=== PATIENT | male | born 1980 | race Two or more races ===

== ENCOUNTER 2023-06-04 09:16 | Emergency (ER) | payer SELFPAY ==
[2023-06-04 10:14] LABS: Urine Bacteria FEW /hpf (None Seen); Urine Blood Negative /uL (Negative); Urine Clarity Clear (Clear); Urine Color Yellow (Yellow); Urine Protein, UAD 1+ (Negative); Urine Specific Gravity 1.031 (1.001-1.035); Urine WBC 1 /hpf (0 - 3)
[2023-06-04 10:15] LABS: Basophils # (auto) 0.1 10 ^3/uL (0-0.2); Basophils % (auto) 0.6 % (0.0-2.0); Eosinophils # (auto) 0.1 10 ^3/uL (0-0.8); Eosinophils % (auto) 1.1 % (0.0-7.0); Hematocrit 44.8 % (41.0-53.0); Hemoglobin 15.3 g/dL (13.5-17.5); Lymphocytes # (auto) 2.4 10 ^3/uL (0.4-5.4); Mean Corpuscular Hemoglobin 30.8 pg (28.0-32.0); Mean Corpuscular Hgb Conc. 34.2 g/dL (32.0-36.0); Mean Corpuscular Volume 90.2 fL (80.0-100.0); Monocytes # (auto) 0.5 10 ^3/uL (0-1.3); Monocytes % (auto) 5.2 % (0.0-12.0); Neutrophils # (auto) 5.8 10 ^3/uL (1.6-8.6); Neutrophils % (auto) 66.1 % (37.0-80.0); Nucleated Red Blood Cells % 0.1 %; Red Blood Cells 4.97 10^6/uL (4.5-5.90); Red Cell Distribution Width 12.8 % (11.8-14.3); White Blood Cell 8.7 10^3/uL (4.4-10.8)
[2023-06-04 10:25] LABS: Chloride 108 mmol/L (98-107); Sodium 138 mmol/L (136-145)
[2023-06-04 10:26] LABS: Anion Gap 7 (5-15); Calcium 9.5 mg/dL (8.5-10.1); Carbon Dioxide 23 mmol/L (20-30)
[2023-06-04 10:31] LABS: BUN/Creatinine Ratio 16.4 (10.0-20.0); Blood Urea Nitrogen 9 mg/dL (9-23); Glucose 219 mg/dL (74-106)
[2023-06-04] MEDS ORDERED: IBUP-1455 PO (20:56)
[2023-06-04] MEDS: IOHEXOL 300 MG/ML 100ML BOTTLE IJ ONE (21:19)
[2023-06-05 00:18] VITALS: BP 109/76; PULSE 87; RESP 18; TEMP 98.5; O2SAT 97
== END 2023-06-05 00:19 | disposition still patient (30) ==
LOC: ER 09:16
DX: K40.90 Unilateral inguinal hernia, without obstruction or gangrene, not specified as recurrent (principal)
CPT/HCPCS: 36415; 74177; 76870; 80048; 81001; 85025; 99285; J7030; J7040; Q9967